=== PATIENT | male | born 1945 | race Caucasian/White ===

== ENCOUNTER 2018-09-24 14:07 | Emergency (ER) | payer BC, MEDICARE ==
--- NOTE | 2018-09-24 15:08 | EDM.PDOC ---
ED HPI GENERAL MEDICAL PROBLEM - General Chief Complaint: Neuro Symptoms/Deficits Stated Complaint: POSSIBLE STROKE Time Seen by Provider: 09/24/18 14:50 Source of Information: Reports: Patient History Limitations: Reports: No Limitations - History of Present Illness INITIAL COMMENTS - FREE TEXT/NARRATIVE: 72-year-old male who is having some left-sided facial weakness, and feels like his left arm coordination is off. No headache, difficulty walking, dizziness or nausea. He thinks symptoms started last evening. [place] some numbness in his face. No difficulties with memory or speech. Onset: Unknown/Unsure (At least 16 hours ago) Associated Symptoms: Denies: Confusion, Chest Pain, Cough, Shortness of Breath - Related Data Allergies Allergy/AdvReac Type Severity Reaction Status Date / Time amoxicillin Allergy Abdominal Verified 09/24/18 14:31 Cramps Home Meds: Home Meds Clopidogrel [Plavix] 75 mg PO DAILY 10/25/13 [History] Fexofenadine [Ava] 180 mg PO DAILY 10/25/13 [History] Fluticasone Propionate [Flonase] 2 spray NS DAILY 10/25/13 [History] Levothyroxine 175 mcg PO ACBRK 10/25/13 [History] Lisinopril/Hydrochlorothiazide [Zestoretic 20-25 MG] 1 tab PO DAILY 10/25/13 [ History] Simvastatin [Zocor] 20 mg PO DAILY 10/25/13 [History] Vardenafil HCl [Levitra] 10 mg PO ASDIRECTED PRN 10/25/13 [History] glipiZIDE [Glipizide Xl] 10 mg PO DAILY 10/25/13 [History] metFORMIN [Glucophage] 1 tab PO BID 10/25/13 [History] Past Medical History HEENT History: Reports: Impaired Vision Cardiovascular History: Reports: High Cholesterol, Hypertension, Stents Endocrine/Metabolic History: Reports: Diabetes, Type II, Hypothyroidism Hematologic History: Reports: Anticoagulation Therapy - Past Surgical History Head Surgeries/Procedures: Reports: None HEENT Surgical History: Reports: Adenoidectomy, Tonsillectomy Cardiovascular Surgical History: Reports: Coronary Artery Stent Endocrine Surgical History: Reports: None Dermatological Surgical History: Reports: None Social & Family History - Tobacco Use Smoking Status *Q: Current Every Day Smoker Years of Tobacco use: 50 Packs/Tins Daily: 0.5 Used Tobacco, but Quit: No Second Hand Smoke Exposure: No - Caffeine Use Caffeine Use: Reports: Coffee - Recreational Drug Use Recreational Drug Use: No ED ROS GENERAL - Review of Systems Review Of Systems: See Below Constitutional: Denies: Fever, Chills Respiratory: Denies: Shortness of Breath GI/Abdominal: Denies: Nausea, Vomiting Skin: Reports: No Symptoms. Denies: Rash Neurological: Denies: Dizziness, Headache Psychiatric: Reports: No Symptoms ED EXAM, NEURO - Physical Exam Exam: See Below Exam Limited By: No Limitations General Appearance: Alert, No Apparent Distress Eye Exam: Bilateral Eye: Normal Inspection (No periorbital weakness) Throat/Mouth: Other (Patient has definite left-sided facial weakness, slight dysarthria) Head Exam: Atraumatic Respiratory/Chest: No Respiratory Distress Cardiovascular: Regular Rate, Rhythm Neurological: Alert, Oriented x 3, Other (Left-sided facial weakness. I cannot reproduce the subjective feeling of lack of coordination or weakness in his left arm, his exam is symmetric with his right arm) Skin Exam: Warm, Dry Course - Vital Signs Last Recorded V/S: Last Vital Signs Temp 95.6 F 09/24/18 14:43 Pulse 81 09/24/18 18:06 Resp 13 09/24/18 18:06 BP 126/75 09/24/18 18:06 Pulse Ox 98 09/24/18 17:28 - Orders/Labs/Meds Labs: Laboratory Tests 09/24/18 09/24/18 09/24/18 Range/Units 16:50 16:50 16:50 WBC 9.7 (4.5-11.0) K/uL RBC 4.41 (4.30-5.90) M/uL Hgb 12.3 (12.0-15.0) g/dL Hct 39.7 L (40.0-54.0) % MCV 90 (80-98) fL MCH 28 (27-31) pg MCHC 31 L (32-36) % Plt Count 328 (150-400) K/uL Neut % (Auto) 59 (36-66) % Lymph % (Auto) 29 (24-44) % [place] % (Auto) 9 H (2-6) % Eos % (Auto) 3 (2-4) % Baso % (Auto) 1 (0-1) % PT 10.0 (9.5-12.0) sec INR 0.92 (0.80-1.20) Sodium 141 (140-148) mmol/L Potassium 4.1 (3.6-5.2) mmol/L Chloride 105 (100-108) mmol/L Carbon Dioxide 30 (21-32) mmol/L Anion Gap 6.1 (5.0-14.0) mmol/L BUN 24 H (7-18) mg/dL Creatinine 0.9 (0.8-1.3) mg/dL Est Cr Clr Drug Dosing 68.92 mL/min Estimated GFR (MDRD) > 60 (>60) Glucose 86 (74-106) mg/dL Calcium 8.8 (8.5-10.1) mg/dL Total Bilirubin 0.2 (0.2-1.0) mg/dL AST 25 (15-37) U/L ALT 23 (12-78) U/L Alkaline Phosphatase 76 (46-116) U/L Total Protein 7.7 (6.4-8.2) g/dL Albumin 3.2 L (3.4-5.0) g/dL Globulin 4.5 H (2.3-3.5) g/dL Albumin/Globulin Ratio 0.7 L (1.2-2.2) - Re-Assessments/Exams Free Text/Narrative Re-Assessment/Exam: 09/24/18 15:[address] without contrast was obtained. 09/24/18 16:54 Impression: 1. There is a 2 cm region of hypoattenuation and loss of rose-white matter differentiation in the right precentral gyrus consistent with acute infarct. No mass effect or hemorrhage. Above findings were discussed with neurology in [place], and transfer was arranged through the hospitalist service at [facility]. CBC, CMP and pro time were obtained. Dr. Aguirre, hospitalist for [facility] and [place] accepted the patient at 1645. 09/25/18 07:12 Labs are basically normal, patient was transferred by EMS. Departure - Departure Time of Disposition: 17:32 Disposition: DC/Tfer to Other [facility] Clinical Impression: Ischemic cerebrovascular accident (CVA) - Discharge Information Referrals: Berry Maxwell MD [Primary Care Provider] - Forms: ED Department Discharge Care Plan Goals: Patient is to be transferred to [facility] for neurology evaluation and treatment for an acute ischemic stroke.
--- NOTE | 2018-09-24 16:26 | CRLCT ---
Indication: Facial weakness. Possible arm symptoms left side. Technique: Noncontrast multi axial CT images of the head were obtained without contrast. Bone and soft tissue locked rhythms. Comparison: No prior studies available for comparison at this institution. Findings: There is a 2 cm region of hypoattenuation and loss of rose-white matter differentiation in the right precentral gyrus consistent with acute infarct (image [id number] series 2). No mass, mass effect, or midline shift. No hydrocephalus. No evidence of acute intracranial hemorrhage. The basilar cisterns are clear. No suspicious extra-axial collection. The calvarium is intact. The paranasal sinuses and mastoid air cells are clear. Impression: 1. There is a 2 cm region of hypoattenuation and loss of rose-white matter differentiation in the right precentral gyrus consistent with acute infarct. No mass effect or hemorrhage. 2. Findings called to Dr. Dai at 4:23 p.m. Please note that all CT scans at this facility use dose modulation, iterative reconstruction, and/or weight-based dosing when appropriate to reduce radiation dose to as low as reasonably achievable. Dictated by Benjamín Erazo MD @ Sep 24 2018 4:18PM Signed by Dr. Benjamín Erazo @ Sep 24 2018 4:24PM
[2018-09-24 18:07] VITALS: BP 126/75; PULSE 81
== END 2018-09-24 18:19 | disposition other institution (70) ==
LOC: JP.ED 14:07
DX: I63.9 Cerebral infarction, unspecified (principal); R29.810 Facial weakness; I10 Essential (primary) hypertension; E11.9 Type 2 diabetes mellitus without complications; E03.9 Hypothyroidism, unspecified; F17.210 Nicotine dependence, cigarettes, uncomplicated; Z98.890 Other specified postprocedural states; Z95.5 Presence of coronary angioplasty implant and graft; Z79.84 Long term (current) use of oral hypoglycemic drugs; Z79.899 Other long term (current) drug therapy
CPT/HCPCS: 36415; 70450; 80053; 85025; 85610; 99285-25